=== PATIENT | male | born 1965 ===

== ENCOUNTER 2018-07-19 06:31 | Inpatient (IN) | payer OTHER ==
[2018-07-19 06:31] VITALS: BMI 23.7
[2018-07-19 06:47] VITALS: O2SAT 100
[2018-07-19 07:00] LABS: URINE BACTERIA RARE (<OCC); URINE BILIRUBIN NEGATIVE (NEGATIVE); URINE BLOOD NEGATIVE (NEGATIVE); URINE CLARITY Clear (Clear); URINE COLOR Yellow (YELLOW); URINE GLUCOSE (UA) NORMAL (Normal); URINE LEUKOCYTE ESTERASE NEG Leu/uL (Negative); URINE PROTEIN NEGATIVE (NEGATIVE); URINE UROBILINOGEN NORMAL mg/dL (0.2-1.0)
--- NOTE | 2018-07-19 07:30 | C.PDOC ---
History Of Present Illness 53 year old male, whose past medical history includes diabetes and DVT (non compliant warfarin x 3 weeks), presents to the ED for psychiatric evaluation. Patient reports hearing voices and suicidal ideation. Patient was reportedly ad mitted to another institution. He denies any other medical complaints at this time. Time Seen by Provider: 07/19/18 07:06 Chief Complaint (Nursing): Psychiatric Evaluation History Per: Patient History/Exam Limitations: no limitations Onset/Duration Of Symptoms: Hrs Current Symptoms Are (Timing): Still Present Suicide/Self Injury Attempted (Context): None Modifying Factor(s): None Associated Symptoms: Suicidal Thoughts Involuntary Hold By: None Recent travel outside of the [place]: No Additional History Per: Patient Past Medical History Reviewed: Historical Data, Nursing Documentation, Vital Signs Vital Signs: Last Vital Signs Temp 97.3 F L 07/19/18 06:43 Pulse 63 07/19/18 06:43 Resp 16 07/19/18 06:43 BP 138/87 07/19/18 06:43 Pulse Ox 100 07/19/18 06:43 - Medical History PMH: Anxiety, Asthma, Depression, Deep Vein Thrombosis, Schizophrenia Denies: Chronic Kidney Disease Surgical History: No Surg Hx - [facility] Procedures DRAINAGE OF RIGHT LOWER LEG SKIN, EXTERNAL APPROACH (06/19/18) EXERCISE TRMT MUSCULOSK LOW BACK/LE W ASSIST EQUIP (06/28/18) GAIT TRAINING/AMBULAT TREATMENT USING ASSIST EQUIPMENT (06/28/18) GROUP PSYCHOTHERAPY (06/19/18) HOME MANAGEMENT TREATMENT USING ASSIST EQUIPMENT (06/28/18) INDIV PSYCHOTHERAPY FOR SUBSTANCE ABUSE, MOTIVATION ENHANCE (06/19/18) INDIVIDUAL PSYCHOTHERAPY, SUPPORTIVE (06/19/18) INTRODUCE OF OTH ANTI-INFECT INTO PERIPH VEIN, PERC APPROACH (06/28/18) Family History: States: Unknown Family Hx - Social History Hx Alcohol Use: No Hx Substance Use: Yes (Crack Cocaine) Review Of Systems Except As Marked, All Systems Reviewed And Found Negative. Psych: Positive for: Suicidal ideation, Other (auditory hallucinations ) Physical Exam - Physical Exam Appears: Non-toxic, No Acute Distress Skin: Warm, Dry, Other (right lower extremity: superficial ulcer with minimal erythema ) Head: Atraumatic, Normacephalic Eye(s): bilateral: Normal Inspection Oral Mucosa: Moist Neck: Supple Chest: Symmetrical, No Deformity, No Tenderness Cardiovascular: Rhythm Regular, No Murmur Respiratory: Normal Breath Sounds, No Rales, No Rhonchi, No Wheezing Extremity: Normal ROM, Capillary Refill (less than 2 seconds ) Pulses: Left Dorsalis Pedis: Normal, Right Dorsalis Pedis: Normal Neurological/Psych: Oriented x3, Normal Speech, Normal Cognition ED Course And Treatment - Laboratory Results Result Diagrams: 07/19/18 07:27 07/19/18 07:27 Lab Results: Urine Color Yellow (YELLOW) 07/19/18 06:50 Urine Clarity Clear (Clear) 07/19/18 06:50 Urine pH 5.0 (5.0-8.0) 07/19/18 06:50 Ur Specific [place] 1.023 (1.003-1.030) 07/19/18 06:50 Urine Protein Negative mg/dL (NEGATIVE) 07/19/18 06:50 Urine Glucose (UA) Normal mg/dL (Normal) 07/19/18 06:50 Urine Ketones Negative mg/dL (NEGATIVE) 07/19/18 06:50 Urine Blood Negative (NEGATIVE) 07/19/18 06:50 Urine Nitrate Negative (NEGATIVE) 07/19/18 06:50 Urine Bilirubin Negative (NEGATIVE) 07/19/18 06:50 Urine Urobilinogen Normal mg/dL (0.2-1.0) 07/19/18 06:50 Ur Leukocyte Esterase Neg [place]/uL (Negative) 07/19/18 06:50 Urine WBC (Auto) < 1 /hpf (0-5) 07/19/18 06:50 Urine RBC (Auto) < 1 /hpf (0-3) 07/19/18 06:50 Urine Bacteria Rare (<OCC) 07/19/18 06:50 O2 Sat by Pulse Oximetry: 100 (on RA) Pulse Ox Interpretation: Normal Medical Decision Making Medical Decision Making: Progress: Review of prior records shows patient recently underwent inpatient admission. Ultrasound showed chronic DVT. Patient to be on Coumadin daily. pt reports non compliance- recommend lovenox vs xarelto. Bloodwork and urinalysis ordered and reviewed. Patient placed on one-to-one ED observation and will be evaluated by biofuels plant construction worker. 0824: Patient has been medically cleared. [employer]fuels plant construction worker discussed case with dr bray. will start on xarelto as pt non complaint Disposition - Disposition Disposition: HOSPITALIZED Disposition Time: 09:00 Condition: GOOD - Clinical Impression Clinical Impression: Chronic deep vein thrombosis (DVT), Schizophrenia - Scribe Statement The provider has reviewed the documentation as recorded by the Scribe (Ofelia Banks) Provider Attestation: All medical record entries made by the Scribe were at my direction and personally dictated by me. I have reviewed the chart and agree that the record accurately reflects my personal performance of the history, physical exam, medical decision making, and the department course for this patient. I have also personally directed, reviewed, and agree with the discharge instructions and disposition. Decision To Admit - Pt Status Changed To: Hospital Disposition Of: Inpatient - Admit Certification Admit to Inpatient:: After my assessment, the patient will require hos pitalization for at least two midnights. This is because of the severity of symptoms shown, intensity of services needed, and/or the medical risk in this patient being treated as an outpatient. - InPatient: Physician Admission Certification: I certify that this patient requires 2 or more midnights of care for the following reason:: needs pysch - . Bed Request Type: Psychiatry Admitting Physician: Yoon Bray Patient Diagnosis: Chronic deep vein thrombosis (DVT), Schizophrenia
[2018-07-19 07:31] LABS: BASO # 0.1 K/uL (0.0-0.2); BASO % 1.4 % (0.0-2.0); EOS # 0.2 K/uL (0.0-0.7); EOS % 3.2 % (0.0-4.0); HEMOGLOBIN 13.4 g/dL (12.0-18.0); LYMPH # 1.5 K/uL (1.0-4.3); LYMPH % 20.5 % (20.0-40.0); MEAN CELL VOLUME 88.4 fL (80.0-94.0); MEAN CORPUSCULAR HEMOGLOBIN 30.1 pg (27.0-31.0); MEAN PLATELET VOLUME 7.7 fL (7.2-11.7); MONO # 0.7 K/uL (0.0-0.8); MONO % 9.2 % (0.0-10.0); NEUT # 4.7 K/uL (1.8-7.0); NEUT % 65.7 % (50.0-75.0); NRBC % 0.1 % (0.0-2.0); RBC 4.45 Mil/uL (4.40-5.90); RED CELL DISTRIBUTION WIDTH 14.2 % (11.5-14.5); WHITE BLOOD COUNT 7.2 K/uL (4.8-10.8)
[2018-07-19 07:39] LABS: BARBITURATES, UR NEGATIVE (NEGATIVE); BENZODIAZEPINES, UR NEGATIVE (NEGATIVE); OPIATES, UR NEGATIVE (NEGATIVE); PHENCYCLIDINE, UR NEGATIVE (NEGATIVE)
[2018-07-19 07:49] LABS: ALB/GLOB RATIO 1.4 (1.0-2.1); ALBUMIN 4.4 g/dL (3.5-5.0); ALT/SGPT 8 U/L (21-72); AST/SGOT 28 U/L (17-59); BLOOD UREA NITROGEN 12 mg/dL (9-20); CALCIUM 9.3 mg/dl (8.6-10.4); GFR NON-AFRICAN AMERICAN > 60
[2018-07-19 07:55] LABS: ACETAMINOPHEN < 10.0 ug/mL (10.0-30.0); SALICYLATE < 1.0 mg/dL 1
--- NOTE | 2018-07-19 11:51 | PCM.BM ---
<Sadia Busby - Last Filed: 07/19/18 11:49> Treatment Plan Problems - Problems identified on initial assessmt altered thought process Date Initiated: 07/19/18 Time Initiated: 11:50 Assessment reference: NA Status: Active anxiety Date Initiated: 07/19/18 Time Initiated: 11:50 Assessment reference: NA Status: Active Treatment assets and liabiliti Patient Assests: adapts well, cooperative, educated (Pt. reports having a college education (agriculture). ), resourceful, self-reliant, ADL independent, good support system (Circumstantial family support : Pt. identifies who resides in [place] as primary family support, although currently . Pt. reports having frequent communication with 4 brothers who reside in [place]. ), negotiates basic needs, cognitively intact Patient Liabilities: live alone, physical pain, financial problems, poor support system, relationship conflicts, substance abuse - Milieu Protocol Maintain good personal hygiene: daily Encourage regular showers, daily Remind patient to perform daily oral care, daily Assist patient to perform ADL's Conduct patient checks and document Observation sheet: Q15 minutes Maintain personal safety: every shift Educate patient to report safety concerns to staff, every shift Monitor environment for contraband/sharps Medication safety: Monitor for expected outcome, potential side effects: every shift, Assess barriers to learning: every shift, Assess readiness for medication education: every shift <Yoon Bray - Last Filed: 07/20/18 10:10> - Diagnosis (1) Schizophrenia Status: Chronic Interventions: 07/20/18 10:10 * Assess/adjust medications daily and /or as needed * See patient on an individual basis 7x/week to assess status of hallucinations * Discuss risks, benefits, side effects and alternatives of medications * <Jaycee Yoon - Last Filed: 07/20/18 11:12> Family Contact Family involvement: Famliy/SO not involved - Goals for Treatment Patient goals for treatment: "I need to go to program." Discharge/Continuing Care - Education Needs Education Needs: Patient Medication, Patient Coping Skills, Patient Placement options, Patient Community resources - Discharge Discharge Criteria: Tolerates medication w/o severe side effects, No longer exhibiting s/s of withdrawal, Reduction of target symptoms Discharge to:: Substance Abuse Rehab - Treatment Team Participation Discussed with Family/SO: No Was Patient/Family/SO present at Treatment Team Meeting: Yes
--- NOTE | 2018-07-19 12:00 | CP.PCM.CON ---
<Sylvie Bowser - Last Filed: 07/19/18 13:50> History of Present Illness - History of Present Illness History of Present Illness: Medicine consult note Patient is a 53 year old male with pmhx of schizophrenia, DM2, asthma, chronic DVT admitted to Psych for treatment of SI/AH; medicine consulted for chronic RLE DVT/cellulitis(1 yr), and management of DM2. Patient reports he was recently hospitalized in [place], and treated for RLE cellulitis/ulcer with antibiotics, however did not complete full course in TCU 2/2 signing out AMA. Since then, he has had persistent pain in RLE with non-healing ulcer. Patient reports history of RLE DVT diagnosed 1 year ago, treated with coumadin. Patient reports history of DM2, treated with metformin and januvia. Patient reports history of asthma, treated with ventolin as needed. Patient reports he is non compliant with medications as prescribed 2/2 inadequate medical access. Pt reports the retirement he was previously residing in had misplaced his medications and belongings, and had only been compliant with metformin and coumadin prior to arrival. Pt denies chest pain, palpitations, SOB, nausea, diarrhea. pmhx: schizophrenia, DM2, asthma, chronic DVT, RLE cellulitis(MRSA+) pshx: denies meds: metformin 1000mg BID, Januvia(?) qd, coumadin 8mg po qd, ventolin prn, trazodone Allergies: NKDA sochx: denies alcohol and tobacco use, smokes crack daily; unemployed and lives in retirement Review of Systems - Cardiovascular Cardiovascular: absent: Chest Pain - Respiratory Respiratory: Wheezing - Gastrointestinal Gastrointestinal: absent: Diarrhea, Nausea - Genitourinary Genitourinary: absent: Dysuria - Integumentary Integumentary: Skin Ulcer (right medial LE), Swelling (right) - Psychiatric Psychiatric: Auditory Hallucinations, Suicidal Ideation - Endocrine Endocrine: absent: Excessive Sweating, Polydipsia Past Patient History - Infectious Disease Hx of Infectious Diseases: MRSA - Past Medical History & Family History Past Medical History?: Yes - Past Social History Smoking Status: Former Smoker - CARDIAC Hx Cardiac Disorders: Yes Hx Hypertension: No - PULMONARY Hx Asthma: Yes - NEUROLOGICAL HX Cerebrovascular Accident: No Hx Seizures: No - HEENT Hx HEENT Problems: No - RENAL Hx Chronic Kidney Disease: No - ENDOCRINE/METABOLIC Hx Endocrine Disorders: Yes (diabetes mellitus type 2) Hx Diabetes Mellitus Type 2: Yes - HEMATOLOGICAL/ONCOLOGICAL Hx Cancer: No Hx Human Immunodeficiency Virus (HIV): No - INTEGUMENTARY Hx Dermatological Problems: Yes Hx Cellulitis: Yes (right leg) - MUSCULOSKELETAL/RHEUMATOLOGICAL Hx Musculoskeletal Disorders: No Hx Falls: Yes - GASTROINTESTINAL Hx Gastrointestinal Disorders: No - GENITOURINARY/GYNECOLOGICAL Hx Sexually Transmitted Disorders: No - PSYCHIATRIC Hx Schizophrenia: Yes Hx Substance Use: Yes - SURGICAL HISTORY Hx Surgeries: No - ANESTHESIA Hx Anesthesia: No Hx Anesthesia Reactions: No Hx Malignant Hyperthermia: No Meds Allergies/Adverse Reactions: Allergies Allergy/AdvReac Type Severity Reaction Status Date / Time No Known Allergies Allergy Verified 06/28/18 17:33 - Medications Medications: Current Medications Pneumococcal Polyvalent Vaccine (Pneumovax 23 Vaccine) 0.5 ml IM .ONCE ONE Stop: 07/23/18 10:01 Physical Exam - Constitutional Appears: Non-toxic, No Acute Distress, Agitated - Head Exam Head Exam: ATRAUMATIC, NORMAL INSPECTION, NORMOCEPHALIC - Eye Exam Eye Exam: EOMI, Normal appearance - ENT Exam ENT Exam: Mucous Membranes Moist, Normal Exam - Neck Exam Neck exam: Positive for: Normal Inspection - Respiratory Exam Respiratory Exam: Clear to Auscultation Bilateral, NORMAL BREATHING PATTERN. a bsent: Respiratory Distress - Cardiovascular Exam Cardiovascular Exam: REGULAR RHYTHM, +S1, +S2. absent: Tachycardia - GI/Abdominal Exam GI & Abdominal Exam: Soft. absent: Distended, Tenderness - Extremities Exam Extremities exam: Positive for: calf tenderness (right), tenderness (RLE, mid [place] and distal), pedal pulses present. Negative for: normal inspection (right medial distal LE ulcer, central opening 1x1cm with surrounding 3cm erythema.) Additional comments: RLE TTP mid [place] distally. Dry flaky hyperpigmented skin - Neurological Exam Neurological exam: Alert - Psychiatric Exam Psychiatric exam: Agitated Additional comments: complains of auditory hallucinations during exam, preoccupied - Skin Skin Exam: Dry, Warm Results - Vital Signs Recent Vital Signs: Last Vital Signs Temp 98.2 F 07/19/18 09:08 Pulse 72 07/19/18 09:08 Resp 18 07/19/18 09:08 BP 142/82 07/19/18 09:08 Pulse Ox 100 07/19/18 09:08 - Labs Result Diagrams: 07/19/18 07:27 07/19/18 07:27 Labs: Laboratory Results - last 24 hr 07/19/18 07/19/18 07/19/18 06:50 06:50 07:27 WBC 7.2 RBC 4.45 Hgb 13.4 Hct 39.3 MCV 88.4 MCH 30.1 MCHC 34.0 RDW 14.2 Plt Count 236 MPV 7.7 Neut % (Auto) 65.7 Lymph % (Auto) 20.5 [place] % (Auto) 9.2 Eos % (Auto) 3.2 Baso % (Auto) 1.4 Neut # (Auto) 4.7 Lymph # (Auto) 1.5 [place] # (Auto) 0.7 Eos # (Auto) 0.2 Baso # (Auto) 0.1 Sodium Potassium Chloride Carbon Dioxide Anion Gap BUN Creatinine Est GFR ( Amer) Est GFR (Non-Af Amer) Random Glucose Calcium Phosphorus Magnesium Total Bilirubin AST ALT Alkaline Phosphatase Total Protein Albumin Globulin Albumin/Globulin Ratio Urine Color Yellow Urine Clarity Clear Urine pH 5.0 Ur Specific [place] 1.023 Urine Protein Negative Urine Glucose (UA) Normal Urine Ketones Negative Urine Blood Negative Urine Nitrate Negative Urine Bilirubin Negative Urine Urobilinogen Normal Ur Leukocyte Esterase Neg Urine WBC (Auto) < 1 Urine RBC (Auto) < 1 Urine Bacteria Rare Salicylates Urine Opiates Screen Negative Urine Methadone Screen Negative Acetaminophen Ur Barbiturates Screen Negative Ur Phencyclidine Scrn Negative Ur Amphetamines Screen Negative U Benzodiazepines Scrn Negative U Oth Cocaine Metabols Positive H U Cannabinoids Screen Positive H Alcohol, Quantitative 07/19/18 07/19/18 07:27 07:27 WBC RBC Hgb Hct MCV MCH MCHC RDW Plt Count MPV Neut % (Auto) Lymph % (Auto) [place] % (Auto) Eos % (Auto) Baso % (Auto) Neut # (Auto) Lymph # (Auto) [place] # (Auto) Eos # (Auto) Baso # (Auto) Sodium 136 Potassium 3.5 L Chloride 100 Carbon Dioxide 29 Anion Gap 10 BUN 12 Creatinine 0.9 Est GFR ( Amer) > 60 Est GFR (Non-Af Amer) > 60 Random Glucose 112 H Calcium 9.3 Phosphorus 3.3 Magnesium 1.8 Total Bilirubin 0.6 AST 28 ALT 8 L Alkaline Phosphatase 62 Total Protein 7.5 Albumin 4.4 Globulin 3.2 Albumin/Globulin Ratio 1.4 Urine Color Urine Clarity Urine pH Ur Specific [place] Urine Protein Urine Glucose (UA) Urine Ketones Urine Blood Urine Nitrate Urine Bilirubin Urine Urobilinogen Ur Leukocyte Esterase Urine WBC (Auto) Urine RBC (Auto) Urine Bacteria Salicylates < 1.0 Urine Opiates Screen Urine Methadone Screen Acetaminophen < 10.0 L Ur Barbiturates Screen Ur Phencyclidine Scrn Ur Amphetamines Screen U Benzodiazepines Scrn U Oth Cocaine Metabols U Cannabinoids Screen Alcohol, Quantitative < 10 Assessment & Plan (1) Cellulitis Assessment and Plan: (06/22/18) MRSA wound culture positive (06/22/18) RLE MRI: Findings compatible with medial RLE cellulitis w/out definite abscess or osteomyelitis pattern appreciable at this time. Start clinda 300mg po TID GI ppx; Florastor f/u wound cx f/u blood cx wound care Status: Acute (2) Chronic deep vein thrombosis (DVT) Assessment and Plan: RLE US from [facility] medical records: R superficial femoral, deep femoral, and popliteal veins fibrous changes suggestive of chronic DVT. Xarelto 20mg given in ED f/u INR d/c home coumadin start Eliquis 5mg po BID tomorrow, pt is insured and can continue tx on home eliquis 2/2 followup necessary w/ coumadin Status: Chronic (3) DM2 (diabetes mellitus, type 2) Assessment and Plan: continue home meds metformin 1000mg po BID and Januvia 50mg po QD accuchecks ACHS hypoglycemia protocol Hgb a1c (06/19): 6.5 Diabetic diet Status: Chronic (4) Asthma Assessment and Plan: continue home Ventolin q6h prn Status: Chronic (5) Schizophrenia Assessment and Plan: management per psych Status: Chronic (6) Cocaine use disorder Assessment and Plan: UDS positive for cocaine and cannabis management per psych Status: Chronic - Assessment and Plan (Free Text) Assessment: Discussed w/ Dr. Jernigan -Sylvie Bowser, PGY-1 <Leisa Jernigan - Last Filed: 07/21/18 15:48> Meds - Medications Medications: Current Medications Acetaminophen (Tylenol 325mg Tab) 650 mg PO Q6 PRN PRN Reason: Pain, severe (8-10) Last Admin: 07/19/18 19:11 Dose: 650 mg Albuterol (Ventolin Hfa 90 Mcg/Actuation (8 G)) 1 puff INH RQ6 PRN PRN Reason: Wheezing Apixaban (Eliquis) 5 mg PO BID [facility] Last Admin: 07/20/18 09:40 Dose: 5 mg Clindamycin HCl (Cleocin) 300 mg PO TID [facility]; Protocol Last Admin: 07/20/18 14:19 Dose: 300 mg Dextrose (Dextrose 50% Inj) 0 ml IV STAT PRN; Protocol PRN Reason: Hypoglycemia Protocol Dextrose (Glutose 15) 0 gm PO ONCE PRN; Protocol PRN Reason: Hypoglycemia Protocol Glucagon (Glucagen Diagnostic Kit) 1 mg IM STAT PRN; Protocol PRN Reason: Hypoglycemia Protocol Hydrocortisone (Cortizone 1% Oint) 0 gm TOP BID [facility] Hydroxyzine HCl (Atarax) 25 mg PO Q6 PRN PRN Reason: Anxiety Dextrose (Dextrose 5% In Water 1000 Ml) 1,000 mls @ 0 mls/hr IV .Q0M PRN; Protocol PRN Reason: Hypoglycemia Protocol Influenza Virus Vaccine (Flucelvax Quad [id number] Syr) 60 mcg IM .ONCE ONE Stop: 07/23/18 10:01 Lactic Acid (Lac-Hydrin 12% Lotion (225 G)) 0 gm EXT BID [facility] Last Admin: 07/20/18 07:40 Dose: 1,000 mg Pneumococcal Polyvalent Vaccine (Pneumovax 23 Vaccine) 0.5 ml IM .ONCE ONE Stop: 07/23/18 10:01 Saccharomyces Boulardii (Florastor) 250 mg PO BID [facility] Last Admin: 07/20/18 09:40 Dose: 250 mg Sitagliptin Phosphate (Januvia) 50 mg PO DAILY [facility] Last Admin: 07/20/18 09:40 Dose: 50 mg Trazodone HCl (Desyrel) 50 mg PO HS [facility] Last Admin: 07/19/18 22:50 Dose: Not Given Ziprasidone (Geodon Cap) 40 mg PO BID [facility] Results - Vital Signs Recent Vital Signs: Last Vital Signs Temp 98.9 F 07/20/18 06:14 Pulse 80 07/20/18 15:34 Resp 18 07/20/18 06:14 BP 138/87 07/20/18 15:34 Pulse Ox 100 07/19/18 15:21 - Labs Result Diagrams: 07/21/18 08:30 07/21/18 08:30 Labs: Laboratory Results - last 24 hr 07/19/18 07/20/18 07/20/18 20:14 07:35 08:39 WBC 6.3 RBC 4.67 Hgb 14.1 Hct 41.5 MCV 88.9 MCH 30.2 MCHC 34.0 RDW 14.9 H Plt Count 278 MPV 7.6 Neut % (Auto) 60.9 Lymph % (Auto) 23.3 [place] % (Auto) 10.4 H Eos % (Auto) 4.8 H Baso % (Auto) 0.6 Neut # (Auto) 3.8 Lymph # (Auto) 1.5 [place] # (Auto) 0.7 Eos # (Auto) 0.3 Baso # (Auto) 0.0 Sodium Potassium Chloride Carbon Dioxide Anion Gap BUN Creatinine Est GFR ( Amer) Est GFR (Non-Af Amer) POC Glucose (mg/dL) 150 H 149 H Random Glucose Calcium Phosphorus Magnesium Total Bilirubin AST ALT Alkaline Phosphatase Total Protein Albumin Globulin Albumin/Globulin Ratio 07/20/18 07/20/18 08:39 11:13 WBC RBC Hgb Hct MCV MCH MCHC RDW Plt Count MPV Neut % (Auto) Lymph % (Auto) [place] % (Auto) Eos % (Auto) Baso % (Auto) Neut # (Auto) Lymph # (Auto) [place] # (Auto) Eos # (Auto) Baso # (Auto) Sodium 136 Potassium 4.5 Chloride 102 Carbon Dioxide 28 Anion Gap 11 BUN 11 Creatinine 1.0 Est GFR ( Amer) > 60 Est GFR (Non-Af Amer) > 60 POC Glucose (mg/dL) 123 H Random Glucose 150 H D Calcium 9.4 Phosphorus 2.9 Magnesium 2.0 Total Bilirubin 0.4 AST 31 ALT 17 L D Alkaline Phosphatase 93 Total Protein 8.0 Albumin 4.5 Globulin 3.4 Albumin/Globulin Ratio 1.3 Attending/Attestation - Attestation I have personally seen and examined this patient.: Yes I have fully participated in the care of the patient.: Yes I have reviewed all pertinent clinical information: Yes Notes (Text): seen and examined with the resident. patient has chronic DVT,noncompliance with Coumadin. His leg cellulites is chronic start on Eliquis(pt has insurance). start on clindamycin
[2018-07-19] MEDS ORDERED: Albuterol HFA 90 mcg/actuation (8 g) INH PRN (12:04)
[2018-07-19] MEDS ORDERED: Glucagon Recombinant 1 mg Inj IM PRN (12:05)
[2018-07-19] MEDS ORDERED: Dextrose 50% SYRINGE Inj (50 ml) IV PRN (12:05)
[2018-07-19 14:20] LABS: INR 1.6; PROTHROMBIN TIME 17.8 SECONDS (9.7-12.2)
--- NOTE | 2018-07-19 15:12 | PCM.PSYCH ---
Initial Psychiatric Evaluation - Initial Psychiatric Evaluation Type of Admission: Voluntary Legal Status: Capacity Chief Complaint (in patient's own words): I was hearing voices.' History of Present Illness and Precipitating Events: Pt is a 53 year old male who came to the [facility] emergency department, for depressed mood, auditory hallucinations and suicidal ideation. Patient reports a long history of schizophrenia, diagnosed in [place]. He reports history of few inpatient psychiatric hospitalizations. He was last discharged from [facility] last month. However he denies any history of follow-up with any psychiatrist. Patient appeared somewhat disorganized and internally preoccupied. He remained a poor historian. He was superficially cooperative but guarded about the details. He reports that, he was recently hospitalized at [facility] for cellulitis on his right leg from 06/26/18-06/28/18 on med surge and then 06/28/18-07/02/18 on TCU. Patient reports that he stopped taking the medications below for discharge from the hospital. And he relapsed on cocaine and marijuana. He reports of hearing a lot of non command type voices. He also reports of seeing things and paranoia. He also reports depressed mood, feelings of hopelessness and helplessness, and poor sleep. He reports at times irritability and agitation. He reports of abusing cocaine but denies any drinking or any other substance abu se. Pt reports one suicide attempt in his 30's via hanging with a belt. Pt reports being diagnosed with schizophrenia and depression in [place], Past medical history DM, deep vein thrombosis, asthma, P.S: The wound on right leg still appears infected and unkempt (for that medical consult was placed ). Current Medications: Active Medications Generic Name Dose Route Start Last Admin Trade Name Freq PRN Reason Stop Dose Admin Acetaminophen 650 mg 07/19/18 14:18 Tylenol 325mg Tab PO Q6 PRN Pain, severe (8-10) Albuterol 1 puff 07/19/18 12:04 Ventolin Hfa 90 Mcg/Actuation (8 G) INH RQ6 PRN Wheezing Apixaban 5 mg 07/19/18 18:00 Eliquis PO BID JIMI Clindamycin HCl 300 mg 07/19/18 14:00 07/19/18 14:13 Cleocin PO 300 mg TID JIMI Administration Protocol Dextrose 0 ml 07/19/18 12:05 Dextrose 50% Inj IV STAT PRN Hypoglycemia Protocol Protocol Dextrose 0 gm 07/19/18 12:05 Glutose 15 PO ONCE PRN Hypoglycemia Protocol Protocol Glucagon 1 mg 07/19/18 12:05 Glucagen Diagnostic Kit IM STAT PRN Hypoglycemia Protocol Protocol Dextrose 1,000 mls @ 0 mls/hr 07/19/18 12:05 Dextrose 5% In Water 1000 Ml IV .Q0M PRN Hypoglycemia Protocol Protocol Per Protocol Metformin HCl 1,000 mg 07/19/18 17:00 Glucophage PO BIDCC JIMI Pneumococcal Polyvalent Vaccine 0.5 ml 07/23/18 10:00 Pneumovax 23 Vaccine IM 07/23/18 10:01 .ONCE ONE Saccharomyces Boulardii 250 mg 07/19/18 18:00 Florastor PO BID JIMI Sitagliptin Phosphate 50 mg 07/19/18 13:30 07/19/18 14:14 Januvia PO 50 mg DAILY JIMI Administration Past Psychiatric History - Past Psychiatric History Previous Treatment History: Inpatient Pertinent Medical Hx (Current Medical&Sleep Prob, Allergies): Allergies Allergy/AdvReac Type Severity Reaction Status Date / Time No Known Allergies Allergy Verified 06/28/18 17:33 MetFORMIN [glucOPHAGE] 1,000 mg PO BID 07/19/18 Review of Systems - Review of Systems All systems: reviewed and no additional remarkable complaints except - Psychiatric Psychiatric: Anxiety, Auditory Hallucinations, Irritability, Paranoia, Suicidal Ideation Mental Status Examination - Personal Presentation Personal Presentation: Looks stated age - Affect Affect: Constricted, Depressed - Motor Activity Motor Activity: Psychomotor Retardation - Reliability in Providing Information Reliability in Providing Information: Poor, due to alteration in thoughts, Poor, due to altered mood - Speech Speech: Disorganized - Mood Mood: Depressed, Anxious - Formal Thought Process Formal Thought Process: Hallucinations, Delusions, Paranoia, Loosening of associations - Hallucinations/Delusions Hallucinations: Visual, Auditory Delusions: Persecution - Obsessions/Compulsions Obsessions: No Compulsions: No - Cognitive Functions Orientation: Person, Place, Situation Sensorium: Alert Attention/Concentration: Attentive Abstract Thinking: [place] Estimate of Intelligence: Below average Judgement: Imparied, as evidence by: Poor judgement, Imparied, as evidence by: Lack of insight into illness - Risk Risk: Suicidal, Diminished functioning - Limitations Limitations: Living alone DSM 5 DX - DSM 5 DSM 5 Diagnosis: Schizophrenia paranoid type continues Cocaine use disorder moderate Cannabis use disorder moderate DM DVT Asthma - Recommended/Plan of Treatment Treatment Recommendations and Plan of Treatment: Schizophrenia paranoid type continues Cocaine use disorder moderate Cannabis use disorder moderate DM DVT Asthma CBT Psychoeducation Supportive therapy group therapy Continue meds for DM/DVT Geodon for psychosis Trazodone for insomnia Hydroxyzine for anxiety
[2018-07-19] MEDS ORDERED: (Novolin R) Insulin Human Regular 100 units/ml vial SC SCH (16:30)
[2018-07-19] MEDS: Saccharomyces Boulardi 250 mg Cap PO SCH (17:51)
[2018-07-20 08:44] LABS: BASO % 0.6 % (0.0-2.0); EOS # 0.3 K/uL (0.0-0.7); EOS % 4.8 % (0.0-4.0); HEMOGLOBIN 14.1 g/dL (12.0-18.0); LYMPH # 1.5 K/uL (1.0-4.3); LYMPH % 23.3 % (20.0-40.0); MEAN CELL VOLUME 88.9 fL (80.0-94.0); MEAN CORPUSCULAR HEMOGLOBIN 30.2 pg (27.0-31.0); MEAN PLATELET VOLUME 7.6 fL (7.2-11.7); MONO # 0.7 K/uL (0.0-0.8); MONO % 10.4 % (0.0-10.0); NEUT # 3.8 K/uL (1.8-7.0); NEUT % 60.9 % (50.0-75.0); NRBC % 0.1 % (0.0-2.0); RBC 4.67 Mil/uL (4.40-5.90); RED CELL DISTRIBUTION WIDTH 14.9 % (11.5-14.5); WHITE BLOOD COUNT 6.3 K/uL (4.8-10.8)
[2018-07-20 09:00] LABS: ALB/GLOB RATIO 1.3 (1.0-2.1); ALBUMIN 4.5 g/dL (3.5-5.0)
[2018-07-20 09:01] LABS: ALT/SGPT 17 U/L (21-72); AST/SGOT 31 U/L (17-59); BLOOD UREA NITROGEN 11 mg/dL (9-20); CALCIUM 9.4 mg/dl (8.6-10.4); GFR NON-AFRICAN AMERICAN > 60
[2018-07-20] MEDS: Saccharomyces Boulardi 250 mg Cap PO SCH ×2 (09:40→17:43)
--- NOTE | 2018-07-20 09:46 | PCM.PYCHPN ---
Psychiatric Progress Note - Psychiatric Progress Note Patient seen today, length of contact: 15 min Patient Chief Complaint: I was hearing voices.' Problems Identified/Issues Discussed: Patient was seen and evaluated, chart reviewed and discussed the staff. Patient still reports hallucinations and paranoid paranoia He appears more organized than before but still reports intermittent paranoia and delirium. He is taking medication but denies any side effects. Supportive therapy was provided Medication Change: Yes Medical Record Reviewed: Yes Mental Status Examination - Cognitive Function Orientation: Person, Place, Situation Memory: Intact Attention: WNL Concentration: Poor Association: WNL Fund of Knowledge: Poor - Mood Mood: Depressed, Anxious - Affect Affect: Constricted, Depressed - Speech Speech: Soft - Formal Thought Process Formal Thought Process: Hallucinations, Delusions, Paranoia, Loosening of associations - Suicidal Ideation Suicidal Ideation: No - Homicidal Ideation Homicidal Ideation: No Goal/Treatment Plan - Goal/Treatment Plan Need for Continued Stay: Remain at risks for inpatient hospitalization Progress Toward Problem(s) and Goals/Treatment Plan: Schizophrenia paranoid type continues Cocaine use disorder moderate Cannabis use disorder moderate DM DVT Asthma CBT Psychoeducation Supportive therapy group therapy Continue meds for DM/DVT Geodon for psychosis Trazodone for insomnia Hydroxyzine for anxiety
--- NOTE | 2018-07-20 12:40 | CP.PCM.PN ---
<Sylvie Bowser - Last Filed: 07/20/18 16:31> Subjective - Date & Time of Evaluation Date of Evaluation: 07/20/18 Time of Evaluation: 11:30 - Subjective Subjective: Patient examined at bedside. No acute overnight events. Patient reports RLE pain. He reports dry flaking skin around lower leg and foot. Pt reports he has been eating well, having normal BMs and urinating. Denies complaints of chest pain, SOB, nausea, diarrhea. Objective - Vital Signs/Intake and Output Vital Signs (last 24 hours): Temp Pulse Resp BP Pulse Ox 98.9 F 56 L 18 112/71 100 07/20/18 06:14 07/20/18 06:14 07/20/18 06:14 07/20/18 06:14 07/19/18 15:21 - Medications Medications: Current Medications Acetaminophen (Tylenol 325mg Tab) 650 mg PO Q6 PRN PRN Reason: Pain, severe (8-10) Last Admin: 07/19/18 19:11 Dose: 650 mg Albuterol (Ventolin Hfa 90 Mcg/Actuation (8 G)) 1 puff INH RQ6 PRN PRN Reason: Wheezing Apixaban (Eliquis) 5 mg PO BID [facility] Last Admin: 07/20/18 09:40 Dose: 5 mg Clindamycin HCl (Cleocin) 300 mg PO TID [facility]; Protocol Last Admin: 07/20/18 09:40 Dose: 300 mg Dextrose (Dextrose 50% Inj) 0 ml IV STAT PRN; Protocol PRN Reason: Hypoglycemia Protocol Dextrose (Glutose 15) 0 gm PO ONCE PRN; Protocol PRN Reason: Hypoglycemia Protocol Glucagon (Glucagen Diagnostic Kit) 1 mg IM STAT PRN; Protocol PRN Reason: Hypoglycemia Protocol Hydroxyzine HCl (Atarax) 25 mg PO Q6 PRN PRN Reason: Anxiety Dextrose (Dextrose 5% In Water 1000 Ml) 1,000 mls @ 0 mls/hr IV .Q0M PRN; Protocol PRN Reason: Hypoglycemia Protocol Influenza Virus Vaccine (Flucelvax Quad 6605-4639 Syr) 60 mcg IM .ONCE ONE Stop: 07/23/18 10:01 Metformin [facility] ([facility] Last Admin: 07/20/18 07:40 Dose: 1,000 mg Pneumococcal Polyvalent Vaccine (Pneumovax 23 Vaccine) 0.5 ml IM .ONCE ONE Stop: 07/23/18 10:01 Saccharomyces Boulardii (Florastor) 250 mg PO BID [facility] Last Admin: 07/20/18 09:40 Dose: 250 mg Sitagliptin Phosphate (Januvia) 50 mg PO DAILY [facility] Last Admin: 07/20/18 09:40 Dose: 50 mg Trazodone HCl (Desyrel) 50 mg PO HS [facility] Last Admin: 07/19/18 22:50 Dose: Not Given Ziprasidone (Geodon Cap) 40 mg PO BID [facility] - Labs Labs: 07/20/18 08:39 07/20/18 08:39 PT 17.8 SECONDS (9.7-12.2) H 07/19/18 14:00 INR 1.6 07/19/18 14:00 - Additional Findings Additional findings: - Constitutional Appears: Non-toxic, No Acute Distress, Agitated - Head Exam Head Exam: ATRAUMATIC, NORMAL INSPECTION, NORMOCEPHALIC - Eye Exam Eye Exam: EOMI, Normal appearance - ENT Exam ENT Exam: Mucous Membranes Moist, Normal Exam - Neck Exam Neck exam: Positive for: Normal Inspection - Respiratory Exam Respiratory Exam: Clear to Auscultation Bilateral, NORMAL BREATHING PATTERN. absent: Respiratory Distress - Cardiovascular Exam Cardiovascular Exam: REGULAR RHYTHM, +S1, +S2. absent: Tachycardia - GI/Abdominal Exam GI & Abdominal Exam: Soft. absent: Distended, Tenderness - Extremities Exam Extremities exam: Positive for: calf tenderness (right), tenderness (RLE, mid [place] and distal), pedal pulses present. Negative for: normal inspection (right medial distal LE ulcer, central opening 1x1cm with surrounding 3cm erythema.) Additional comments: RLE TTP mid [place] distally. Dry flaky hyperpigmented skin - Neurological Exam Neurological exam: Alert - Psychiatric Exam Psychiatric exam: Agitated Additional comments: complains of auditory hallucinations during exam, preoccupied - Skin Skin Exam: Dry, Warm Assessment and Plan (1) Cellulitis Assessment & Plan: (06/22/18) MRSA wound culture positive (06/22/18) RLE MRI: Findings compatible with medial RLE cellulitis w/out definite abscess or osteomyelitis pattern appreciable at this time. continue clinda 300mg po TID GI ppx; Florastor wound cx + MRSA contact precautions f/u blood cx wound care Tylenol 650mg po q6 prn pain Status: Acute (2) Chronic deep vein thrombosis (DVT) Assessment & Plan: Assessment and Plan: RLE from [facility] medical records: R superficial femoral, deep femoral, and popliteal veins fibrous changes suggestive of chronic DVT. Xarelto 20mg given in ED INR on admission 1.6 d/c home coumadin continue Eliquis 5mg po BID, pt is insured and can continue tx on home eliquis 2/2 followup necessary w/ coumadin Status: Chronic (3) DM2 (diabetes mellitus, type 2) Assessment & Plan: continue home meds metformin 1000mg po BID and Januvia 50mg po QD accuchecks ACHS hypoglycemia protocol Hgb a1c (06/19): 6.5 Diabetic diet Status: Chronic (4) Asthma Assessment & Plan: continue home Ventolin q6h prn Status: Chronic (5) Schizophrenia Assessment & Plan: management per psych Status: Chronic (6) Cocaine use disorder Assessment & Plan: UDS positive for cocaine and cannabis management per psych Status: Chronic - Assessment and Plan (Free Text) Assessment: Discussed w/ Dr. Jernigan -Sylvie Bowser, PGY-1 <Leisa Jernigan - Last Filed: 07/21/18 15:44> Objective - Vital Signs/Intake and Output Vital Signs (last 24 hours): Temp Pulse Resp BP Pulse Ox 98.9 F 80 18 138/87 100 07/20/18 06:14 07/20/18 15:34 07/20/18 06:14 07/20/18 15:34 07/19/18 15:21 - Medications Medications: Current Medications Acetaminophen (Tylenol 325mg Tab) 650 mg PO Q6 PRN PRN Reason: Pain, severe (8-10) Last Admin: 07/19/18 19:11 Dose: 650 mg Albuterol (Ventolin Hfa 90 Mcg/Actuation (8 G)) 1 puff INH RQ6 PRN PRN Reason: Wheezing Apixaban (Eliquis) 5 mg PO BID JIMI Last Admin: 07/20/18 09:40 Dose: 5 mg Clindamycin HCl (Cleocin) 300 mg PO TID JIMI; Protocol Last Admin: 07/20/18 14:19 Dose: 300 mg Dextrose (Dextrose 50% Inj) 0 ml IV STAT PRN; Protocol PRN Reason: Hypoglycemia Protocol Dextrose (Glutose 15) 0 gm PO ONCE PRN; Protocol PRN Reason: Hypoglycemia Protocol Glucagon (Glucagen Diagnostic Kit) 1 mg IM STAT PRN; Protocol PRN Reason: Hypoglycemia Protocol Hydrocortisone (Cortizone 1% Oint) 0 gm TOP BID JIMI Hydroxyzine HCl (Atarax) 25 mg PO Q6 PRN PRN Reason: Anxiety Dextrose (Dextrose 5% In Water 1000 Ml) 1,000 mls @ 0 mls/hr IV .Q0M PRN; Protocol PRN Reason: Hypoglycemia Protocol Influenza Virus Vaccine (Flucelvax Quad 1139-2249 Syr) 60 mcg IM .ONCE ONE Stop: 07/23/18 10:01 Lactic Acid (Lac-Hydrin 12% Lotion (225 G)) 0 gm EXT BID JIMI Metformin HCl (Glucophage) 1,000 mg PO BIDCC [facility] Last Admin: 07/20/18 07:40 Dose: 1,000 mg Pneumococcal Polyvalent Vaccine (Pneumovax 23 Vaccine) 0.5 ml IM .ONCE ONE Stop: 07/23/18 10:01 Saccharomyces Boulardii (Florastor) 250 mg PO BID [facility] Last Admin: 07/20/18 09:40 Dose: 250 mg Sitagliptin Phosphate (Januvia) 50 mg PO DAILY [facility] Last Admin: 07/20/18 09:40 Dose: 50 mg Trazodone HCl (Desyrel) 50 mg PO HS [facility] Last Admin: 07/19/18 22:50 Dose: Not Given Ziprasidone (Geodon Cap) 40 mg PO BID JIMI - Labs Labs: 07/20/18 08:39 07/20/18 08:39 PT 17.8 SECONDS (9.7-12.2) H 07/19/18 14:00 INR 1.6 07/19/18 14:00 Attending/Attestation - Attestation I have personally seen and examined this patient.: Yes I have fully participated in the care of the patient.: Yes I have reviewed all pertinent clinical information, including history, physical exam and plan: Yes Notes (Text): seen and examined ,patient is complaining of dry and itchy skin around his cellulites area Lac hydrin ordered,blood culture negative wound culture MRSA,follow c/s,follow ID RN instruction,likely chronic colonization continue clindamycin chronic DVT is on Eliquis
[2018-07-20] MEDS: Ammonium Lactate 12% Lotion (225 g) EXT SCH (17:44)
[2018-07-21 08:34] LABS: BASO # 0.1 K/uL (0.0-0.2); BASO % 1.1 % (0.0-2.0); EOS # 0.3 K/uL (0.0-0.7); EOS % 4.3 % (0.0-4.0); HEMOGLOBIN 14.5 g/dL (12.0-18.0); LYMPH # 1.8 K/uL (1.0-4.3); MEAN CELL VOLUME 89.5 fL (80.0-94.0); MEAN CORPUSCULAR HEMOGLOBIN 30.6 pg (27.0-31.0); MEAN CORPUSCULAR HGB CONC 34.2 g/dL (33.0-37.0); MEAN PLATELET VOLUME 7.6 fL (7.2-11.7); MONO # 0.6 K/uL (0.0-0.8); MONO % 9.8 % (0.0-10.0); NEUT # 3.8 K/uL (1.8-7.0); NEUT % 57.8 % (50.0-75.0); NRBC % 0.1 % (0.0-2.0); RBC 4.75 Mil/uL (4.40-5.90); RED CELL DISTRIBUTION WIDTH 14.7 % (11.5-14.5); WHITE BLOOD COUNT 6.6 K/uL (4.8-10.8)
[2018-07-21 08:50] LABS: ALB/GLOB RATIO 1.4 (1.0-2.1); ALBUMIN 4.5 g/dL (3.5-5.0); ALT/SGPT 20 U/L (21-72); AST/SGOT 24 U/L (17-59); BLOOD UREA NITROGEN 11 mg/dL (9-20); CALCIUM 9.7 mg/dl (8.6-10.4); GFR NON-AFRICAN AMERICAN > 60
[2018-07-21] MEDS: Saccharomyces Boulardi 250 mg Cap PO SCH ×2 (09:55→17:53)
[2018-07-21] MEDS: Ammonium Lactate 12% Lotion (225 g) EXT SCH ×2 (09:56→18:03)
--- NOTE | 2018-07-21 10:31 | CP.PCM.PN ---
<Lela Gomez - Last Filed: 07/21/18 13:07> Subjective - Date & Time of Evaluation Date of Evaluation: 07/21/18 Time of Evaluation: 10:31 - Subjective Subjective: PGY-1 Lela Gomez D.O. Medicine progress note for Dr. Jernigan's service: Patient was seen and examined this morning. He is ambulating without difficulty. He says that his leg is feeling better and he is applying cream to the area. he says that he has always had dry skin. Objective - Vital Signs/Intake and Output Vital Signs (last 24 hours): Temp Pulse Resp BP Pulse Ox 98.7 F 70 20 132/83 100 07/21/18 06:31 07/21/18 06:31 07/21/18 06:31 07/21/18 06:31 07/19/18 15:21 - Medications Medications: Current Medications Acetaminophen (Tylenol 325mg Tab) 650 mg PO Q6 PRN PRN Reason: Pain, severe (8-10) Last Admin: 07/19/18 19:11 Dose: 650 mg Albuterol (Ventolin Hfa 90 Mcg/Actuation (8 G)) 1 puff INH RQ6 PRN PRN Reason: Wheezing Apixaban (Eliquis) 5 mg PO BID [facility] Last Admin: 07/21/18 09:55 Dose: 5 mg Clindamycin HCl (Cleocin) 300 mg PO TID JIMI; Protocol Last Admin: 07/21/18 09:55 Dose: 300 mg Dextrose (Dextrose 50% Inj) 0 ml IV STAT PRN; Protocol PRN Reason: Hypoglycemia Protocol Dextrose (Glutose 15) 0 gm PO ONCE PRN; Protocol PRN Reason: Hypoglycemia Protocol Glucagon (Glucagen Diagnostic Kit) 1 mg IM STAT PRN; Protocol PRN Reason: Hypoglycemia Protocol Hydrocortisone (Cortizone 1% Oint) 0 gm TOP BID [facility] Last Admin: 07/21/18 09:57 Dose: Not Given Hydroxyzine HCl (Atarax) 25 mg PO Q6 PRN PRN Reason: Anxiety Dextrose (Dextrose 5% In Water 1000 Ml) 1,000 mls @ 0 mls/hr IV .Q0M PRN; Protocol PRN Reason: Hypoglycemia Protocol Influenza Virus Vaccine (Flucelvax Quad 0267-5497 Syr) 60 mcg IM .ONCE ONE Stop: 07/23/18 10:01 Lactic Acid (Lac-Hydrin 12% Lotion (225 G)) 0 gm EXT BID [facility] Last Admin: 07/21/18 09:56 Dose: Not Given Metformin HCl (Glucophage) 1,000 mg PO BIDCC [facility] Last Admin: 07/21/18 08:17 Dose: 1,000 mg Pneumococcal Polyvalent Vaccine (Pneumovax 23 Vaccine) 0.5 ml IM .ONCE ONE Stop: 07/23/18 10:01 Saccharomyces Boulardii (Florastor) 250 mg PO BID [facility] Last Admin: 07/21/18 09:55 Dose: 250 mg Sitagliptin Phosphate (Januvia) 50 mg PO DAILY [facility] Last Admin: 07/21/18 09:55 Dose: 50 mg Trazodone HCl (Desyrel) 50 mg PO HS [facility] Last Admin: 07/20/18 21:10 Dose: 50 mg Ziprasidone (Geodon Cap) 40 mg PO BID [facility] Last Admin: 07/21/18 09:55 Dose: 40 mg - Labs Labs: 07/21/18 08:30 07/21/18 08:30 PT 17.8 SECONDS (9.7-12.2) H 07/19/18 14:00 INR 1.6 07/19/18 14:00 - Constitutional Appears: No Acute Distress - Head Exam Head Exam: ATRAUMATIC, NORMAL INSPECTION - Eye Exam Eye Exam: EOMI, Normal appearance - ENT Exam ENT Exam: Mucous Membranes Moist - Neck Exam Neck Exam: Normal Inspection - Respiratory Exam Respiratory Exam: Clear to Ausculation Bilateral, NORMAL BREATHING PATTERN - Cardiovascular Exam Cardiovascular Exam: RRR - GI/Abdominal Exam GI & Abdominal Exam: Soft. absent: Tenderness - Extremities Exam Additional comments: Right medial distal LE ulcer- central opening 1x1 cm with surrounding 2 cm erythema. Hyperpigmentation of bilateral distal lower extremities. Dry flaky skin bilateral lower extremities - Neurological Exam Neurological Exam: Alert, Awake, Normal Gait, Oriented x3 - Psychiatric Exam Psychiatric exam: Normal Affect, Normal Mood - Skin Skin Exam: Dry (excessively, diffuse), Warm Assessment and Plan - Assessment and Plan (Free Text) Assessment: Patient is a 53 yo male with schizophrenia, asthma, T2DM, chronic DVT, and chronic LE cellulitis who is presently admitted to to the psychiatric unit for hallucinations and suicidal ideation. Hospitalists consulted for right lower extremity ulcer. Being treated with PO antibiotics. Plan: Right lower extremity cellulitis, improving - Afebrile - Wound Cx: MRSA, E. coli - Contact precautions until discharge - Tylenol 650 mg PO Q6H PRN - Clindamycin 300 mg PO TID - Hydrocortizone 1% BID - Lac-Hydrin 12% BID - Florastor 250 mg PO BID Chronic deep vein thrombosis, chronic - RLE US from [place] medical records: R superficial femoral, deep femoral, and popliteal veins fibrous changes suggestive of chronic DVT. - INR 1.6 on admission - Eliquis 5 mg PO BID Type 2 diabetes mellitus, chronic - A1c (06/2018) 6.5 - Consistent carb diet - Accuchecks ACHS - Hypoglycemia protocol - ISS - Metformin 1000 mg PO BID - Januvia 50 mg PO daily Asthma, mild intermittent, chronic - Albuterol 1 puff Q6H PRN Schizophrenia, chronic - Management as per psychiatry - Atarax 25 mg PO Q6H PRN - Trazodone 50 mg PO QHS - Geodon 40 mg PO BID Cocaine use disorder, chronic - Management as per psychiatry - UDS positive - Encourage cessation Marijuana use disorder, chronic - Management as per psychiatry - UDS positive - Encourage cessation Hospitalists will sign off at this time. Continue PO antibiotics for a total of 7 days. Please re-consult if necessary. Case discussed with attending, Dr. Jernigan. <Leisa Jernigan - Last Filed: 07/21/18 15:44> Objective - Vital Signs/Intake and Output Vital Signs (last 24 hours): Temp Pulse Resp BP Pulse Ox 98.7 F 70 20 132/83 100 07/21/18 06:31 07/21/18 06:31 07/21/18 06:31 07/21/18 06:31 07/19/18 15:21 - Medications Medications: Current Medications Acetaminophen (Tylenol 325mg Tab) 650 mg PO Q6 PRN PRN Reason: Pain, severe (8-10) Last Admin: 07/19/18 19:11 Dose: 650 mg Albuterol (Ventolin Hfa 90 Mcg/Actuation (8 G)) 1 puff INH RQ6 PRN PRN Reason: Wheezing Apixaban (Eliquis) 5 mg PO BID [facility] Last Admin: 03/23/19 09:55 Dose: 5 mg Clindamycin HCl (Cleocin) 300 mg PO TID [facility]; Protocol Stop: 07/26/18 14:01 Last Admin: 07/21/18 15:00 Dose: 300 mg Dextrose (Dextrose 50% Inj) 0 ml IV STAT PRN; Protocol PRN Reason: Hypoglycemia Protocol Dextrose (Glutose 15) 0 gm PO ONCE PRN; Protocol PRN Reason: Hypoglycemia Protocol Glucagon (Glucagen Diagnostic Kit) 1 mg IM STAT PRN; Protocol PRN Reason: Hypoglycemia Protocol Hydrocortisone (Cortizone 1% Cream) 0 gm TOP BID [facility] Last Admin: 07/21/18 11:56 Dose: 1 applic Hydroxyzine HCl (Atarax) 25 mg PO Q6 PRN PRN Reason: Anxiety Dextrose (Dextrose 5% In Water 1000 Ml) 1,000 mls @ 0 mls/hr IV .Q0M PRN; Protocol PRN Reason: Hypoglycemia Protocol Influenza Virus Vaccine (Flucelvax Quad [id number] Syr) 60 mcg IM .ONCE ONE Stop: 07/23/18 10:01 Lactic Acid (Lac-Hydrin 12% Lotion (225 G)) 0 gm EXT BID [facility] Last Admin: 07/21/18 09:56 Dose: Not Given Metformin HCl (Glucophage) 1,000 mg PO BIDCC [facility] Last Admin: 07/21/18 08:17 Dose: 1,000 mg Pneumococcal Polyvalent Vaccine (Pneumovax 23 Vaccine) 0.5 ml IM .ONCE ONE Stop: 07/23/18 10:01 Saccharomyces Boulardii (Florastor) 250 mg PO BID [facility] Last Admin: 07/21/18 09:55 Dose: 250 mg Sitagliptin Phosphate (Januvia) 50 mg PO DAILY [facility] Last Admin: 07/21/18 09:55 Dose: 50 mg Trazodone HCl (Desyrel) 50 mg PO HS [facility] Last Admin: 07/20/18 21:10 Dose: 50 mg Ziprasidone (Geodon Cap) 40 mg PO BID [facility] Last Admin: 07/21/18 09:55 Dose: 40 mg - Labs Labs: 07/21/18 08:30 07/21/18 08:30 PT 17.8 SECONDS (9.7-12.2) H 07/19/18 14:00 INR 1.6 07/19/18 14:00 Attending/Attestation - Attestation I have personally seen and examined this patient.: Yes I have fully participated in the care of the patient.: Yes I have reviewed all pertinent clinical information, including history, physical exam and plan: Yes Notes (Text): patient has no complain,Has chronic skin changes with history of dermatitis. Bilateral foot eczema noted his right leg was treated in the past and he left AMA without completing treatment. His wound is dry and healing. surrounding skin with dry scaly dermatitis. His wound culture is likely chronic colonization. no fever,no leukocytosis recommend to continue contact isolation,clindamycin and hydrocortisone for eczema
[2018-07-21] MEDS: Hydrocortisone 1% Cream (30 GM) TOP SCH ×2 (11:56→17:53)
--- NOTE | 2018-07-21 12:37 | CP.PCM.PCO ---
<Lela Gomez - Last Filed: 07/21/18 13:05> Addendum Addendum: 07/21/18 13:06 Clindamycin for 7 days total (last day 07/26). Apply Lac-Hydrin to wound. Apply Hydrocortisone to both legs and feet. Contact precautions until discharge. <Leisa Jernigan - Last Filed: 07/21/18 15:44> Attending/Attestation - Attestation I have personally seen and examined this patient.: Yes I have fully participated in the care of the patient.: Yes I have reviewed all pertinent clinical information: Yes
--- NOTE | 2018-07-21 22:59 | PCM.PYCHPN ---
Psychiatric Progress Note - Psychiatric Progress Note Patient seen today, length of contact: 18 min Patient Chief Complaint: "I had trouble sleeping and nightmares last night" Problems Identified/Issues Discussed: Patient was seen and chart was reviewed. Case was discussed with treatment team. Patient reports that he did not have a good night sleep. He reports auditory hallucinations that are derogatory in nature telling him that he is not ready and that he is stupid. He reports ignoring the voices, and he denies that the voices are command in nature. He is preoccupied with the wound on his leg, and reports that he was seen by wound care. He is compliant with treatment. Medication Change: No Medical Record Reviewed: Yes Mental Status Examination - Cognitive Function Orientation: Person, Place, Situation Memory: Intact Attention: WNL Concentration: Poor Association: WNL Fund of Knowledge: Poor - Mood Mood: Depressed, Anxious - Affect Affect: Constricted, Depressed - Speech Speech: Soft - Formal Thought Process Formal Thought Process: Hallucinations, Delusions, Paranoia, Loosening of associations - Suicidal Ideation Suicidal Ideation: No - Homicidal Ideation Homicidal Ideation: No Goal/Treatment Plan - Goal/Treatment Plan Need for Continued Stay: Remain at risks for inpatient hospitalization Progress Toward Problem(s) and Goals/Treatment Plan: Continue medications Support and psychoeducation daily Attend groups and activities daily Individual therapy After care planning by FABIEN and the team
[2018-07-22 08:50] LABS: BASO # 0.1 K/uL (0.0-0.2); BASO % 0.8 % (0.0-2.0); EOS # 0.3 K/uL (0.0-0.7); EOS % 4.4 % (0.0-4.0); HEMOGLOBIN 14.9 g/dL (12.0-18.0); LYMPH % 28.1 % (20.0-40.0); MEAN CELL VOLUME 89.1 fL (80.0-94.0); MEAN CORPUSCULAR HEMOGLOBIN 31.1 pg (27.0-31.0); MEAN CORPUSCULAR HGB CONC 34.9 g/dL (33.0-37.0); MEAN PLATELET VOLUME 7.8 fL (7.2-11.7); MONO # 0.7 K/uL (0.0-0.8); MONO % 10.2 % (0.0-10.0); NEUT # 3.9 K/uL (1.8-7.0); NEUT % 56.5 % (50.0-75.0); NRBC % 0.1 % (0.0-2.0); RBC 4.81 Mil/uL (4.40-5.90)
[2018-07-22 09:34] LABS: ALB/GLOB RATIO 1.3 (1.0-2.1); ALBUMIN 4.6 g/dL (3.5-5.0); ALT/SGPT 26 U/L (21-72); AST/SGOT 38 U/L (17-59); BLOOD UREA NITROGEN 16 mg/dL (9-20); CALCIUM 9.8 mg/dl (8.6-10.4); GFR NON-AFRICAN AMERICAN > 60
[2018-07-22] MEDS: Saccharomyces Boulardi 250 mg Cap PO SCH ×2 (09:49→17:30)
[2018-07-22] MEDS: Hydrocortisone 1% Cream (30 GM) TOP SCH ×2 (09:53→17:31)
[2018-07-22] MEDS: Ammonium Lactate 12% Lotion (225 g) EXT SCH ×2 (09:54→17:27)
[2018-07-23 08:19] LABS: HEMOGLOBIN 13.6 g/dL (12.0-18.0); MEAN CELL VOLUME 88.6 fL (80.0-94.0); MEAN CORPUSCULAR HEMOGLOBIN 29.8 pg (27.0-31.0); MEAN CORPUSCULAR HGB CONC 33.6 g/dL (33.0-37.0); RBC 4.58 Mil/uL (4.40-5.90); WHITE BLOOD COUNT 5.4 K/uL (4.8-10.8)
[2018-07-23 08:20] LABS: BASO # 0.1 K/uL (0.0-0.2); EOS # 0.3 K/uL (0.0-0.7); EOS % 4.7 % (0.0-4.0); LYMPH # 1.8 K/uL (1.0-4.3); LYMPH % 32.8 % (20.0-40.0); MEAN PLATELET VOLUME 7.6 fL (7.2-11.7); MONO # 0.5 K/uL (0.0-0.8); MONO % 9.8 % (0.0-10.0); NEUT # 2.8 K/uL (1.8-7.0); NEUT % 51.7 % (50.0-75.0); NRBC % 0.1 % (0.0-2.0); RED CELL DISTRIBUTION WIDTH 14.7 % (11.5-14.5)
[2018-07-23 08:22] LABS: ALB/GLOB RATIO 1.3 (1.0-2.1); ALBUMIN 4.2 g/dL (3.5-5.0); ALT/SGPT 31 U/L (21-72); AST/SGOT 34 U/L (17-59); BLOOD UREA NITROGEN 15 mg/dL (9-20); CALCIUM 9.7 mg/dl (8.6-10.4); GFR NON-AFRICAN AMERICAN > 60
[2018-07-23] MEDS: Saccharomyces Boulardi 250 mg Cap PO SCH ×2 (09:24→17:10)
[2018-07-23] MEDS ORDERED: Influenza Vaccine 60 mcg/0.5 mL SYR (4YR UP) IM ONE (10:00)
[2018-07-23] MEDS ORDERED: Pneumococcal 23-Valent Vaccine IM ONE (10:00)
[2018-07-23] MEDS: Hydrocortisone 1% Cream (30 GM) TOP SCH ×2 (10:06→17:13)
[2018-07-23] MEDS: Ammonium Lactate 12% Lotion (225 g) EXT SCH ×2 (10:09→17:11)
[2018-07-24 06:17] VITALS: RESP 18
[2018-07-24 07:17] LABS: BASO # 0.1 K/uL (0.0-0.2); BASO % 0.9 % (0.0-2.0); EOS # 0.3 K/uL (0.0-0.7); EOS % 4.2 % (0.0-4.0); HEMOGLOBIN 13.3 g/dL (12.0-18.0); LYMPH # 1.9 K/uL (1.0-4.3); LYMPH % 30.3 % (20.0-40.0); MEAN CELL VOLUME 88.7 fL (80.0-94.0); MEAN CORPUSCULAR HEMOGLOBIN 30.2 pg (27.0-31.0); MEAN CORPUSCULAR HGB CONC 34.1 g/dL (33.0-37.0); MEAN PLATELET VOLUME 7.8 fL (7.2-11.7); MONO # 0.7 K/uL (0.0-0.8); MONO % 10.3 % (0.0-10.0); NEUT # 3.5 K/uL (1.8-7.0); NEUT % 54.3 % (50.0-75.0); NRBC % 0.1 % (0.0-2.0); RBC 4.4 Mil/uL (4.40-5.90); RED CELL DISTRIBUTION WIDTH 14.6 % (11.5-14.5); WHITE BLOOD COUNT 6.4 K/uL (4.8-10.8)
[2018-07-24 07:39] LABS: ALB/GLOB RATIO 1.3 (1.0-2.1); ALBUMIN 3.9 g/dL (3.5-5.0); ALT/SGPT 31 U/L (21-72); AST/SGOT 28 U/L (17-59); BLOOD UREA NITROGEN 16 mg/dL (9-20); CALCIUM 9.1 mg/dl (8.6-10.4); GFR NON-AFRICAN AMERICAN > 60
[2018-07-24] MEDS: Saccharomyces Boulardi 250 mg Cap PO SCH ×2 (10:33→17:16)
[2018-07-24] MEDS: Hydrocortisone 1% Cream (30 GM) TOP SCH ×2 (10:35→17:15)
[2018-07-24] MEDS: Ammonium Lactate 12% Lotion (225 g) EXT SCH ×2 (10:38→17:13)
--- NOTE | 2018-07-25 00:03 | PCM.PYCHPN ---
Psychiatric Progress Note - Psychiatric Progress Note Patient seen today, length of contact: 18 min Patient Chief Complaint: I was hearing voices.' Problems Identified/Issues Discussed: Patient was seen and evaluated, chart reviewed and discussed the staff. Patient still reports hallucinations and paranoid paranoia He appears more organized than before but still reports intermittent paranoia and delirium. He is taking medication but denies any side effects. Supportive therapy was provided Medication Change: No Medical Record Reviewed: Yes Mental Status Examination - Cognitive Function Orientation: Person, Place, Situation Memory: Intact Attention: WNL Concentration: Poor Association: WNL Fund of Knowledge: Poor - Mood Mood: Depressed, Anxious - Affect Affect: Constricted, Depressed - Speech Speech: Soft - Formal Thought Process Formal Thought Process: Hallucinations, Delusions, Paranoia, Loosening of associations - Suicidal Ideation Suicidal Ideation: No - Homicidal Ideation Homicidal Ideation: No Goal/Treatment Plan - Goal/Treatment Plan Need for Continued Stay: Remain at risks for inpatient hospitalization Progress Toward Problem(s) and Goals/Treatment Plan: Schizophrenia paranoid type continues Cocaine use disorder moderate Cannabis use disorder moderate DM DVT Asthma CBT Psychoeducation Supportive therapy group therapy Continue meds for DM/DVT Geodon for psychosis Trazodone for insomnia Hydroxyzine for anxiety
[2018-07-25] MEDS: Saccharomyces Boulardi 250 mg Cap PO SCH ×2 (10:04→17:16)
[2018-07-25] MEDS: Hydrocortisone 1% Cream (30 GM) TOP SCH ×2 (10:05→17:17)
[2018-07-25] MEDS: Ammonium Lactate 12% Lotion (225 g) EXT SCH ×2 (10:08→17:17)
[2018-07-26] MEDS: Saccharomyces Boulardi 250 mg Cap PO SCH ×2 (09:51→17:16)
[2018-07-26] MEDS: Hydrocortisone 1% Cream (30 GM) TOP SCH ×2 (09:52→17:17)
[2018-07-26] MEDS: Ammonium Lactate 12% Lotion (225 g) EXT SCH ×2 (09:52→17:16)
[2018-07-27 06:41] VITALS: BP 107/71; PULSE 58; TEMP 98.3
[2018-07-27] MEDS: Saccharomyces Boulardi 250 mg Cap PO SCH (09:56)
--- NOTE | 2018-07-27 10:24 | PCM.PYCHDC ---
Mental Status Examination - Mental Status Examination Orientation: Person, Place, Situation, Time Memory: Intact Mood: Neutral Affect: Constricted Speech: Soft Attention: WNL Concentration: WNL Association: WNL Fund of Knowledge: WNL Formal Thought Process: No Impairment Description of patient's judgement and insight: Denies any AVH Psychotic Thoughts and Behaviors: denies any AVH Suicidal Ideation: No Current Homicidal Ideation?: No Discharge Summary - Discharge Note Reason for Hospitalization: Pt is a 53 year old male who came to the [facility] emergency department, for depressed mood, auditory hallucinations and suicidal ideation. Patient reports a long history of schizophrenia, diagnosed in [place]. He reports history of few inpatient psychiatric hospitalizations. He was last discharged from [facility] last month. However he denies any history of follow-up with any psychiatrist. Patient appeared somewhat disorganized and internally preoccupied. He remained a poor historian. He was superficially cooperative but guarded about the details. He reports that, he was recently hospitalized at [facility] for cellulitis on his right leg from 06/26/18-06/28/18 on med surge and then 06/28/18-07/02/18 on TCU. Patient reports that he stopped taking the medications below for discharge from the hospital. And he relapsed on cocaine and marijuana. He reports of hearing a lot of non command type voices. He also reports of seeing things and paranoia. He also reports depressed mood, feelings of hopelessness and helplessness, and poor sleep. He reports at times irritability and agitation. He reports of abusing cocaine but denies any drinking or any other substance abuse. Pt reports one suicide attempt in his 30's via hanging with a belt. Pt reports being diagnosed with schizophrenia and depression in [place], Laboratory Data: Abnormal Lab Results 07/27/18 07:30 POC Glucose (mg/dL) 128 H Consultations:: List each consultation separately and include: 1. Reason for request. 2. Findings. 3. Follow-up Summary of Hospital Course include:: 1. Description of specific treatment plan utilized for patients during their course of treatmen. 2. Summarize the time- course for resolution of acute symptoms and/or regressed behaviors. 3. Describe issues identified and worked on during hospitalization. 4. Describe medication utilized. 5. Describe medical problems identified and treated. 6. Reassessment of suicide risk Summary of Hospital Course: Pt is a 53 year old male who came to the [facility] emergency department, for depressed mood, auditory hallucinations and suicidal ideation. Patient reports a long history of schizophrenia, diagnosed in [place]. He reports history of few inpatient psychiatric hospitalizations. He was last discharged from [facility] last month. However he denies any history of follow-up with any psychiatrist. Patient appeared somewhat disorganized and internally preoccupied. He remained a poor historian. He was superficially cooperative but guarded about the details. He reports that, he was recently hospitalized at [facility] for cellulitis on his right leg from 06/26/18-06/28/18 on med surge and then 06/28/18-07/02/18 on TCU. Patient reports that he stopped taking the medications below for discharge from the hospital. And he relapsed on cocaine and marijuana. He reports of hearing a lot of non command type voices. He also reports of seeing things and paranoia. He also reports depressed mood, feelings of hopelessness and helplessness, and poor sleep. He reports at times irritability and agitation. He reports of abusing cocaine but denies any drinking or any other substance abuse. Pt reports one suicide attempt in his 30's via hanging with a belt. Pt reports being diagnosed with schizophrenia and depression in [place], Past medical history DM, deep vein thrombosis, asthma, P.S: The wound on right leg still appears infected and unkempt (for that medical consult was placed ). - Diagnosis (1) Schizophrenia Current Visit: Yes Status: Chronic - Final Diagnosis (DSM 5) Condition upon Discharge: GOOD DSM 5: Schizophrenia paranoid type continues Cocaine use disorder moderate Cannabis use disorder moderate DM DVT Asthma Disposition: HOME/ ROUTINE Follow-up Treatment Plan: Schizophrenia paranoid type continues Cocaine use disorder moderate Cannabis use disorder moderate DM DVT Asthma CBT Psychoeducation Supportive therapy group therapy Continue meds for DM/DVT Geodon for psychosis Trazodone for insomnia Hydroxyzine for anxiety Prescriptions/Medication Reconciliation: Albuterol HFA [Ventolin HFA 90 mcg/actuation (8 g)] 1 puff INH RQ6 PRN #1 inhaler PRN Reason: Wheezing Apixaban [Eliquis] 5 mg PO BID #60 tab metFORMIN [glucOPHAGE] 1,000 mg PO BIDCC #60 tab Sertraline [Zoloft] 25 mg PO DAILY #30 tab SITagliptin [Januvia] 50 mg PO DAILY #30 tab traZODone [Desyrel] 100 mg PO HS #30 tab Ziprasidone [Geodon Cap] 40 mg PO BID #60 cap - Smoking Cessation Smoking Cessation Medication prescribed: No - Antipsychotic Medications Pt discharged on 2 or more routine antipsychotic medications: No
--- NOTE | 2018-07-27 10:25 | PCM.PYCHPN ---
Psychiatric Progress Note - Psychiatric Progress Note Patient seen today, length of contact: 18 min Patient Chief Complaint: I was hearing voices.' Problems Identified/Issues Discussed: Patient was seen and evaluated, chart reviewed and discussed the staff. Patient still reports hallucinations and paranoid paranoia He appears more organized than before but still reports intermittent paranoia and delirium. He is taking medication but denies any side effects. Supportive therapy was provided Medication Change: No Medical Record Reviewed: Yes Mental Status Examination - Cognitive Function Orientation: Person, Place, Situation, Time Memory: Intact Attention: WNL Concentration: WNL Association: WNL Fund of Knowledge: [facility] Decription of patient's judgement and insights: Denies any AVH - Mood Mood: Neutral - Affect Affect: Constricted - Speech Speech: Soft - Formal Thought Process Formal Thought Process: No Impairment Psychotic Thoughts and Behaviors: denies any AVH - Suicidal Ideation Suicidal Ideation: No - Homicidal Ideation Homicidal Ideation: No Goal/Treatment Plan - Goal/Treatment Plan Need for Continued Stay: Remain at risks for inpatient hospitalization Progress Toward Problem(s) and Goals/Treatment Plan: Schizophrenia paranoid type continues Cocaine use disorder moderate Cannabis use disorder moderate DM DVT Asthma CBT Psychoeducation Supportive therapy group therapy Continue meds for DM/DVT Geodon for psychosis Trazodone for insomnia Hydroxyzine for anxiety
[2018-07-27] MEDS: Ammonium Lactate 12% Lotion (225 g) EXT SCH (10:33)
[2018-07-27] MEDS: Hydrocortisone 1% Cream (30 GM) TOP SCH (11:00)
== END 2018-07-27 01:15 | disposition home or self-care (01) | DRG 430 ==
LOC: C.ER 06:31 → C.5E 08:46
PROVIDERS: ADMIT Psychiatry & Neurology Psychiatry; ATTEND Psychiatry & Neurology Psychiatry
PROC: GZHZZZZ Group Psychotherapy (ICD-10-PCS; principal; 2018-07-19)
PROC: HZ52ZZZ Individual Psychotherapy for Substance Abuse Treatment, Cognitive-Behavioral (ICD-10-PCS; 2018-07-19)
PROC: HZ59ZZZ Individual Psychotherapy for Substance Abuse Treatment, Supportive (ICD-10-PCS; 2018-07-19)
PROC: HZ56ZZZ Individual Psychotherapy for Substance Abuse Treatment, Psychoeducation (ICD-10-PCS; 2018-07-19)
PROC: HZ42ZZZ Group Counseling for Substance Abuse Treatment, Cognitive-Behavioral (ICD-10-PCS; 2018-07-19)
PROC: HZ46ZZZ Group Counseling for Substance Abuse Treatment, Psychoeducation (ICD-10-PCS; 2018-07-19)
PROC: GZ58ZZZ Individual Psychotherapy, Cognitive-Behavioral (ICD-10-PCS; 2018-07-19)
PROC: GZ56ZZZ Individual Psychotherapy, Supportive (ICD-10-PCS; 2018-07-19)
DX: F20.0 Paranoid schizophrenia (principal); F14.20 Cocaine dependence, uncomplicated; L03.115 Cellulitis of right lower limb; I82.511 Chronic embolism and thrombosis of right femoral vein; E11.9 Type 2 diabetes mellitus without complications; F12.20 Cannabis dependence, uncomplicated; F32.9 Major depressive disorder, single episode, unspecified; G47.00 Insomnia, unspecified; J45.909 Unspecified asthma, uncomplicated; L30.9 Dermatitis, unspecified; Z79.01 Long term (current) use of anticoagulants; Z87.891 Personal history of nicotine dependence; Z91.14 Patient's other noncompliance with medication regimen; R45.851 Suicidal ideations; Z91.5 Personal history of self-harm